=== PATIENT | female | born 2000 | race Caucasian/White ===

== ENCOUNTER 2021-08-07 16:36 | Observation (INO) | payer MEDICAID ==
[~2021-08-07] VITALS: Ht 170.2 cm; Wt 213.4 kg
[2021-08-07 17:21] LABS: BASO % 0.3 % (0.0-2.0); EOS # 0.1 K/mm3 (0.0-0.7); EOS % 0.9 % (0-4.0); GRAN # 7.1 K/mm3 (1.4-6.5); HEMATOCRIT 40.5 % (35.0-45.0); HEMOGLOBIN 13.1 g/dl (12.0-15.0); LYMPH # 1.1 K/mm3 (1.2-3.4); LYMPH % 12.1 % (20.0-51.0); MEAN CELL VOLUME 79 fl (80.0-95.0); MEAN CORPUSCULAR HEMOGLOBIN 25 pg (26.0-32.0); MEAN CORPUSCULAR HGB CONC 32 g/dl (33.0-37.0); MEAN PLATELET VOLUME 9.7 fl (7.4-10.4); MONO # 0.6 K/mm3 (0.1-0.6); MONO % 6.4 % (1.7-9.3); PLATELET COUNT 303 K/mm3 (130-400); RED BLOOD COUNT 5.16 M/mm3 (4.10-5.30); REDCELL DISTRIBUTION WIDTH-CV 14.6 % (11.5-14.5)
[2021-08-07 17:32] LABS: COLLECTION METHOD CLEAN CATCH
[2021-08-07 17:42] LABS: MUCOUS Present (NOT PRESENT); PH 5 (5-8); URINE APPEARANCE Hazy (CLEAR/HAZY); URINE BACTERIA None Seen (NONE SEEN); URINE BILIRUBIN Negative (NEGATIVE); URINE BLOOD 3+ (NEGATIVE); URINE COLOR Yellow (YELLOW); URINE GLUCOSE Negative (NEGATIVE); URINE KETONE Negative (NEGATIVE); URINE LEUKOCYTE ESTERASE Trace (NEGATIVE); URINE NITRATE Negative (NEGATIVE); URINE PROTEIN(semi-quant) Negative (NEGATIVE); URINE RBC >50 /hpf (0-2); URINE UROBILINOGEN Negative (NEGATIVE)
[2021-08-07 17:45] LABS: ALBUMIN 4.2 gm/dL (3.5-5.0); BILIRUBIN,TOTAL 0.4 mg/dL (0.2-1.2); C-REACTIVE PROTEIN 2.6 mg/dL (0.00-0.50); CREATININE, serum 0.71 mg/dL (0.57-1.11); POTASSIUM 3.8 mmol/L (3.5-4.5); TOTAL PROTEIN 8.4 gm/dL (6.2-8.1)
[2021-08-07 21:50] VITALS: BP 108/66; PULSE 74; TEMP 98.1
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
[2021-08-07 22:05] VITALS: BP 97/85; PULSE 75
[2021-08-07 22:20] VITALS: BP 104/51; PULSE 83
[2021-08-07 22:35] VITALS: BP 105/48; PULSE 82
[2021-08-07 23:05] VITALS: BP 106/64; PULSE 80
[2021-08-07 23:35] VITALS: BP 106/56; PULSE 72
[2021-08-08] VITALS: BP 108/54; PULSE 81
[2021-08-08 01:00] VITALS: BP 105/48; PULSE 69
[2021-08-08 02:00] VITALS: BP 101/46; PULSE 62
[2021-08-08] MEDS ORDERED: ZYRTEC 10MG10 MG PO (02:54)
[2021-08-08] MEDS ORDERED: ZOLOFT 50MG50 MG PO (02:54)
[2021-08-08] MEDS ORDERED: MOBIC15 MG PO (02:55)
[2021-08-08] MEDS ORDERED: FLONASE NASAL S16 GM NS (02:56)
[2021-08-08 04:11] VITALS: BP 112/54; PULSE 77; TEMP 97.4
--- NOTE | 2021-08-08 06:17 | NUR ---
pt given [place] x2, motrin x1 this shift for pain, zofran given x1 this am for slight nausea, pt up ad randi in room to restroom. able to tolerate general diet post op. scant amt of bloody drainage from incisions. IV to INT. resting quietly in bed at this time.
--- NOTE | 2021-08-08 07:09 | NUR ---
REPORT RECIEVED FROM TELEGRAPH INSPECTOR. PT RESTING IN BED. NO SIGNS OR SYMPTOMS OF DISTRESS. NO COMPLAINTS OF PAIN OR DYSPNEA. CALL LIGHT WITHIN REACH
[2021-08-08] MEDS ORDERED: NORCO 325 MG-51 TAB PO (07:41)
[2021-08-08 08:00] VITALS: BP 106/85; PULSE 81; TEMP 97.5
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
== END 2021-08-08 10:08 | disposition home or self-care (01) ==
LOC: COL.ER 16:36 → SURG 20:09
PROVIDERS: Family Medicine; ADMIT Surgery
DX: K35.80 Unspecified acute appendicitis (principal); E66.9 Obesity, unspecified; F32.A Depression, unspecified; F41.9 Anxiety disorder, unspecified; J30.2 Other seasonal allergic rhinitis; Z79.899 Other long term (current) drug therapy
CPT/HCPCS: G0378; J0330; J0690; J0696; J1100; J1885; J2250; J2270; J2405; J2704; J3010; J7120; Q9967